=== PATIENT | male | born 1960 | race Caucasian/White ===

== ENCOUNTER 2017-09-14 09:49 | Emergency (ER) | payer MEDICARE | END 2017-09-14 11:39 | disposition home or self-care (01) | LOC: D.ER 09:49 | DX: S22.32XA Fracture of one rib, left side, initial encounter for closed fracture (principal); W01.0XXA Fall on same level from slipping, tripping and stumbling without subsequent striking against object, initial encounter; Y93.89 Activity, other specified; Y92.019 Unspecified place in single-family (private) house as the place of occurrence of the external cause; I10 Essential (primary) hypertension; E11.9 Type 2 diabetes mellitus without complications ==

== ENCOUNTER 2019-01-26 06:45 | Day surgery (SDC) | payer MEDICARE ==
[2019-01-25 13:34] LABS: HEMATOCRIT 40.9 % (42.0-54.0); HEMOGLOBIN 14.4 g/dL (13.5-17.5); MCH 29.7 pg (26.0-34.0); MCHC 35.2 g/dL (31.0-37.0); MCV 84.3 fL (80.0-100.0); MEAN PLATELET VOLUME 9.5 fL (7.4-10.4); RBC 4.85 10x6/uL (4.20-6.10); RDW 14.2 % (11.5-14.5); WBC 8.3 10x3/uL (4.8-10.8)
[2019-01-25 13:45] LABS: ANION GAP 12.1 mmol/L (8-16); CALCIUM 9.3 mg/dL (8.5-10.1); CARBON DIOXIDE 27.2 mmol/L (21.0-32.0); CREATININE - SERUM 1.3 mg/dL (0.6-1.3); POTASSIUM - SERUM 4.3 mmol/L (3.5-5.1)
[~2019-01-26] VITALS: Ht 185.4 cm; Wt 119.7 kg
[~2019-01-26 06:45] MED LIST: CYCLOBENZAPRINE10 MG PO; GLUCOPHAGE1000 MG PO; LISINOPRIL10 MG PO; VOLTAREN75 MG PO; ZIAC 10-6.25 MG1 TAB PO
[2019-01-26 07:47] VITALS: BP 173/96; Ht 185.4 cm; Wt 119.7 kg
--- NOTE | 2019-01-26 11:16 | OP ---
PATIENT NAME: LOREE BEAL MEDICAL RECORD: [id number] :62 LOCATION:D.[facility] ADMISSION DATE: SURGEON: JORDAN BALDERAS MD DATE OF OPERATION: 01/26/2019 SURGEON: oJrdan Balderas MD ANESTHESIA: TIVA by Ned Bradley CRNA. DIAGNOSIS: Obstructive BPH. COMFORT shows a 50 gram prostate. IPSS score is 17, quality of life score is 5. FINDINGS: On cystoscopy, obstructive bilateral lateral lobes, some tightness of the bladder neck. PROCEDURE: UroLift times 5. COMPLICATIONS: None. ESTIMATED BLOOD LOSS: Minimal. CLINICAL HISTORY: This is a 58-year-old male with a complaint of urinary frequency for the past 3 months. He has urgency without urge incontinence. There is no hesitancy in getting started. The stream is weaker than before. He does feel that he is emptying. He has nocturia times 5-6 and in the daytime he has urinary frequency every 1-1/2 hours. There have been no urinary tract infections. He is quite bothered by the voiding symptoms. He is not taking any medications for BPH. His urinalysis at the time of the clinic visit was normal. His postvoid residual was 3 mL. He refused to have a COMFORT performed in the office and wished to have it done while he is asleep at the time of the UroLift procedure. He is not allergic to any medications. He was given Ancef concrete mason to the OR. DESCRIPTION OF PROCEDURE: The patient was placed in lithotomy position after having been given IV sedation. The UroLift scope was introduced. The lateral lobes are large and obstructive. The prostatic urethra was quite long. The bladder neck was somewhat tight also. There was no significant median lobe; however. We first placed the 2 bladder neck level implants about 1.5 cm distal to the bladder neck at the anterior lateral sulcus of the lateral lobe. One implant was placed on each side. We then went to the verumontanum level and at the anterior lateral sulcus, we placed 1 implant on each side. There was still a bit of obstruction from the mid urethra. I therefore placed one final unit in the mid urethra on the right side. This seemed to open up a nice clear anterior urethral channel. The bladder was left partly full for a voiding trial today. I will see him in followup in 1 months' time. TRANSINT:[id number] Voice Confirmation ID: [id number] DOCUMENT ID: [id number] OPERATIVE REPORT [id number] LOREE BEAL ROBERT S MD at 1116 CC: [id number] DICTATION DATE: 01/26/19 1003 APPLIANCE FIXER: 01/26/19 1107 REG [place] [id number] [place] [id number]
--- NOTE | 2019-01-26 11:59 | NUR ---
1115 DRESSED, AWAKE & ALERT. GIVEN DISCHARGE INFORMATION INCLUDING MED REC, RTC APPT, [facility] D/C INSTRUCTIONS, &UROLIFT D/C INSTRUCTIONS. VOICED UNDERSTANDING. TO PRIVATE CAR PER WHEELCHAIR BY THIS NURSE. HOME WITH , MRS. BEAL. Lou GONZALEZ R.N.
== END 2019-01-26 11:15 | disposition home or self-care (01) ==
LOC: D.OPS 06:45 → D.PAN 09:40 → D.OPS 09:40 → D.PAN 10:25 → D.OPS 10:45 → D.PAN 10:45 → D.OPS 11:15
PROVIDERS: Anesthesiology; ATTEND Urology
DX: N40.1 Benign prostatic hyperplasia with lower urinary tract symptoms (principal); N13.8 Other obstructive and reflux uropathy; R35.0 Frequency of micturition; R35.1 Nocturia; R39.15 Urgency of urination; R39.12 Poor urinary stream; Z01.812 Encounter for preprocedural laboratory examination

== ENCOUNTER 2020-03-12 23:44 | Observation (INO) | payer MEDICARE ==
[~2020-03-12] VITALS: Ht 185.4 cm; Wt 119.2 kg
--- NOTE | ~2020-03-12 | HEMODYNAMI ---
PATIENT:LOREE BEAL MEDICAL RECORD: [id number] : 62 LOCATION:[address] [facility] [id number] ADMISSION DATE: 03/13/20 Generatedon:03/13/202011:48 Patient name: LOREE BEAL Patient #: [id number] SSN: [id number] : 1960 Date of study: 03/13/2020 Page: Of Hemodynamic Procedure Report Patient Data Patient Demographics Procedure consent was obtained First Name: LOREE Gender: Male Last Name: : 1960 [facility] Initial: CHRISTINA Age: 59 year(s) Patient #: [id number] Race: SSN: [id number] Additional ID: [id number] Contact details Address: [address] [place] [address] State: [place] City: [place] Zip code: [address] Past Medical History Allergies: No known allergies Admission Admission Data Admission Date: 03/13/2020 Admission Time: 0:47 Arrival Date: 03/13/2020 Arrival Time: 0:47 Room #: D.2122 Insurance Payor: Medicare [facility] #: [id number] Height (in.): 72.83 BSA: 2.41 (m2) Height (cm.): 185 BMI: 34.77 (kg/m2) Weight (lbs.): 262.35 Weight (kg.): 119 Lab Results Lab Result Date: 03/13/2020 Lab Result Time: 0:00 Biochemistry Name Units Result Min Max BUN mg/dl 24 --(----)-* 7 18 Creatinine mg/dl 1.5 --(----)-* 0.6 1.3 eGFR ml/min 51 *-(----)-- 90 120 NONAFRICAN CBC Name Units Result Min Max Hemoglobin g/dl 12.1 *-(----)-- 13.5 17.5 Procedure Procedure Types Cath Procedure Diagnostic Procedure [facility] w/Coronaries Sedation Charges Moderate Sedation up to 15 minutes Peripheral Cath Diagnostic Procedure 4-Vessel Right Carotid Arteriogram Left Carotid Arteriogram Procedure Description Procedure Date Procedure Date: 03/13/2020 Procedure Start Time: 11:35 Procedure End Time: 11:47 Procedure Staff Name Function Damon Saunders MD Performing Physician Autumn Aggarwal RT Monitor Mandi Wiley RT Scrub Ronna Pan RN Nurse Procedure Data Cath Procedure Fluoroscopy Diagnostic fluoroscopy Total fluoroscopy Time: 1.6 time: 1.6 min min Diagnostic fluoroscopy Total fluoroscopy dose: 680 dose: 680 mGy mGy Contrast Material Contrast Material Type Amount (ml) Isovue 370 74 Entry Location Entry Primary Successful Side Size Upsize Upsize Entry Closure Succes sful Closure Location (Fr) 1 (Fr) 2 (Fr) Remarks Device Remarks Femoral Right 5 Fr Exoseal artery Estimated blood loss: 5 ml Diagnostic catheters Device Type Used For End Catheter Placement MULTIPACK JL 4.0 5Fr Procedure catheter MULTIPACK 3DRC 5Fr Procedure catheter MULTIPACK Pigtail 5 Fr Procedure catheter Procedure Complications No complications Procedure Medications Medication Administration Route Dosage Oxygen etCO2 Nasal cannula 2 l/min Lidocaine 2% added to field 20 Heparin Flush Bag added to field 2 bags (1000units/500ml NS) 0.9% NaCl I.V. 100 ml/hr Versed I.V. 2 mg Fentanyl I.V. 50 mcg Versed I.V. 2 mg Fentanyl I.V. 50 mcg Hemodynamics Rest BSA: 2.41 (m2) HGB: 12.1 (g/dl) O2 Consumption: Estimated: 290.87 (ml/min) O2 Co nsumption indexed: Estimated:120.69 (ml/min/m) Heart Rate: 77 (bpm) Pressure Samples Time Site Value (mmHg) Purpose Heart Use Rate(bpm) 11:42 LV 93/25,9 Snapshot 83 Gradients Valve Time Site Site Mean SEP/DFP Peak To Heart Use 1 2 (mmHg) (sec/min) Peak Rate (mmHg) (bpm) Aortic 11:42 LV AO 68 Snapshots Pre Cath Intra NCS Post Cath Vital Signs Time Heart Resp SPO2 etCO2 NIBP (mmHg) Rhythm Pain Sedation Rate (ipm) (%) (mmHg) Status Level (bpm) 11:25:55 78 15 98 0 179/91(141) NSR 0 (11) 10(A) , No pain 11:30:16 73 21 99 32.2 166/87(134) NSR 0 (11) 10(A) , No pain 11:34:42 67 10 94 23.9 145/81(123) NSR 0 (11) 10(A) , No pain 11:39:00 80 11 94 30.7 129/85(110) NSR 0 (11) 9(A) , No pain 11:43:14 72 11 96 36.7 131/79(107) NSR 0 (11) 10(A) , No pain 11:47:28 75 17 96 23.9 118/68(81) NSR 0 (11) 10(A) , No pain Medications Time Medication Route Dose Verified Delivered Reason Notes Eff ectiveness by by 11:25:41 Oxygen etCO2 2 Damon Buffie used for Nasal l/min St Karl Pan seo manager cannula 11:25:47 Lidocaine 2% added 20ml Damon Damon for local to vial [facility] anesthetic field MD ONEILL 11:25:55 Heparin Flush added 2 Damon Damon used for Bag to bags [facility] procedure (1000units/500ml field MD ONEILL NS) 11:26:03 0.9% NaCl I.V. 100 Damon Buffie Per ml/hr Nicky Pan RN physician 11:28:35 Versed I.V. 2 mg Damon Buffie for NickyKarl Pan RN sedation 11:28:40 Fentanyl I.V. 50 Damon Buff[address] for mcg [address] Karl Pan RN sedation 11:36:54 Versed I.V. 2 mg Damon Buffie for NickyKarl Pan RN sedation 11:37:01 Fentanyl I.V. 50 Damon Buffie for [facility] St Karl Pan RN sedation Procedure Log Time Note 11:00:40 Informed consent obtained and on chart 11:04:47 Arrival Date: 03/13/2020 12:47:00 AM 11:05:11 Insurance Payor : Medicare 11:05:15 Patient Height : 72.83 inches 11:05:18 Patient Weight : 262.35 lbs 11:05:49 Lab Result : eGFR NONAFRICAN 51 ml/min 11:05:49 Lab Result : Creatinine 1.5 mg/dl 11:05:49 Lab Result : BUN 24 mg/dl 11:05:49 Lab Result : Hemoglobin 12.1 g/dl 11:05:56 Procedure Status Urgent Heart Cath (IP). 11:06:17 Diagnostic Cath Status : Urgent 11:06:49 Time tracking: Regular hours (M-F 7:00 - 5:00) 11:06:53 Plan of Care:Hemodynamics will remain stable., Cardiac rhythm will remain stable., Comfort level will be maintained., Respiratory function will remain adequate., Patient/ family verbilizes understanding of procedure., Procedure tolerated without complication., Recovers from procedure without complications.. 11:10:05 Ronna Pan RN sent for patient. Start room use. 11:13:47 Patient allergic to No known allergies 11:14:09 H&P Date Dictated: 03/13/2020 Within 30 days and on chart.. 11:14:10 Pre-procedure instructions explained to patient. 11:14:11 Pre-op teaching completed and patient verbalized understanding. 11:14:15 Patient NPO since Midnight. 11:14:22 Lab results completed and on chart. 11:14:26 Stress Test: no; N/A ? 11:14:27 Alarms reviewed by R. N. 11:14:27 Sharps counted by scrub and verified by R.N. 11:16:35 Risk of Mortality: 0.2 11:16:37 Risk of blood transfusion: 2.6 11:16:40 Risk of CRISTIANE: 0.9 11:16:48 Patient received from Med II to CCL 2 Alert and oriented. Tansferred to table in Supine position. 11:16:54 Warm blankets applied, and shantell hugger turned on for patient comfort. 11:16:55 Correct patient and procedure confirmed by team. 11:16:55 ECG and BP/O2 sat monitors applied to patient. 11:16:58 Family in patients room. 11:24:39 Vital chart was started 11:24:41 Full Disclosure recording started 11:24:44 Is the patient allergic to Iodine/contrast media? No. 11:24:47 Was the patient premedicated? Yes 11:24:51 Patient diabetic? Yes. 11:24:53 If diabetic: On Metformin? Yes 11:25:05 If on Metformin: Last Dose? 03/12/2020 11:25:08 ----Pre-sedation anethsthesia assessment.---- 11:25:14 Previous problem with sedation/anesthesia? No ? 11:25:15 Snore? Yes 11:25:17 Sleep apnea? Unknown 11:25:18 Deviated septum? No 11:25:19 Opens mouth fully? Yes 11:25:20 Sticks out tongue? Yes 11:25:22 Airway obstruction? No ? 11:25:24 Dentures? No ? 11:25:27 Pre procedure: right dorsailis pedis pulse 2+ Normal; easily identifiable; not easily obliterated 11:25:30 Patient pain scale 0/10 ?. 11:25:40 IV patent on arrival in right antecubital with 0.9% NaCl at [facility]. 11:25:41 Oxygen 2 l/min etCO2 Nasal cannula was administered by Ronna Pan RN; used for procedure; Verbal order read back and verified. 11:25:46 Right groin area was prepped with chlora-prep and draped in sterile fashion 11:25:47 Lidocaine 2% 20ml vial added to field was administered by Damon Saunders MD; for local anesthetic; Verbal order read back and verified. 11:25:51 Baseline sample Acquired. 11:25:54 Rhythm: sinus rhythm 11:25:55 Heparin Flush Bag (1000units/500ml NS) 2 bags added to field was administered by Damon Saunders MD; used for procedure; Verbal order read back and verified. 11:26:01 Use device set Femoral Dx 11:26:02 ACIST Syringe (87935) opened to sterile field. 11:26:03 0.9% NaCl 100 ml/hr I.V. was administered by Ronna Pan RN; Per physician; Verbal order read back and verified. 11:26:03 Bag Decanter (2002S) opened to sterile field. 11:26:03 Medline Cath Pack ([id number]) opened to sterile field. 11:26:05 ACIST Hand Control (82272) opened to sterile field. 11:26:05 ACIST Manifold (39517) opened to sterile field. 11:26:09 DIAGNOSTIC Multipack 5Fr catheter set ([id number]) opened to sterile field. 11:26:12 SHEATH 5FR Willington (FII959) opened to sterile field. 11:26:13 MARY JO Guide Wire (189-707) opened to sterile field. 11:28:12 --------ALL STOP TIME OUT------ 11:28:12 Final Timeout: patient, procedure, and site verified with staff and physician. All members of the team are in agreement. 11:28:15 Right groin site verified by team. 11:28:18 Fire Safety Assessment: A--An alcohol-based skin anteseptic being used preoperatively., C--Open oxygen or nitrous oxide is being used., D--An ESU, laser, or fiber-optic light is being used. 11:28:22 Physical assessment completed. ASA score P 2 - A patient with mild systemic disease as per Damon Saunders MD. 11:28:35 Versed 2 mg I.V. was administered by Ronna Pan RN; for sedation; Verbal order read back and verified. 11:28:40 Fentanyl 50 mcg I.V. was administered by Ronna Pan RN; for sedation; Verbal order read back and verified. 11:28:55 3a) 45-59 Moderately reduced kidney function. 11:28:58 Maximum allowable contrast dose (3.7 X eGFR X 0.75)142 ml. 11:29:02 Sedation plan: IV Moderate Sedation Medication:Versed, Fentanyl 11:34:35 Procedure started. 11:35:54 Local anesthetic to right femoral artery with Lidocaine 2% by Damon Saunders MD.INITIAL ACCESS ONLY 11:36:10 A 5 Fr sheath was inserted into the Right Femoral artery 11:36:50 A MULTIPACK JL 4.0 5Fr catheter was advanced over the wire and used for Procedure. 11:36:54 Versed 2 mg I.V. was administered by Ronna Pan RN; for sedation; Verbal order read back and verified. 11:37:01 Fentanyl 50 mcg I.V. was administered by Ronna Pan RN; for sedation; Verbal order read back and verified. 11:37:49 LCA angiography performed. 11:37:54 Injector settings: Ml/sec: 3, Volume: 6, 11:38:47 Catheter removed. 11:38:53 A MULTIPACK 3DRC 5Fr catheter was advanced over the wire and used for Procedure. 11:39:32 RCA angiography performed. 11:39:34 Injector settings: Ml/sec: 3, Volume: 6, 11:40:02 Right carotid angiography performed. 11:40:47 Left carotid angiography performed. 11:41:08 Injector settings: Ml/sec: 3, Volume: 6, 11:41:09 Catheter removed. 11:41:13 A MULTIPACK Pigtail 5 Fr catheter was advanced over the wire and used for Procedure. 11:41:24 LV gram done using STRINGER 11:41:27 Injector settings: Ml/sec: 5, Volume: 15, 11:42:07 LV hemodynamics recorded. 11:42:15 EF : 55 % 11:42:26 Catheter removed. 11:42:34 EXOSEAL 5Fr (EX500) opened to sterile field. 11:42:54 Sheath removed intact; hemostasis achieved with Exoseal to the Right Femoral artery. 11:42:56 Procedure ended.(Physican Out) 11:43:09 Fluoroscopy time 01.60 minutes. 11:43:13 Fluoroscopy dose: 680 mGy 11:43:13 Flurop Dose total: 680 11:43:18 Dose Area Product 76994 mGy/cm. 11:43:23 Contrast amount:Isovue 370 74ml. 11:43:25 Maximum allowable dose exceeded? No. 11:43:26 Sharps counted by scrub and verified by R.N. 11:43:31 Post-op/insertion site Right Femoral artery dressed using a 4 x 4 and Tegaderm. 11:43:58 Post right femoral artery:stable, soft, clean and dry 11:44:02 Post Procedure Pulses reassessed and unchanged 11:44:05 Post procedure: right dorsailis pedis pulse 2+ Normal; easily identifiable; not easily obliterated. 11:44:08 Post-procedure physical assessment completed. ASA score P 2 - A patient with mild systemic disease as per Damon Saunders MD. 11:44:12 Post procedure rhythm: unchanged. 11:44:14 Estimated blood loss: 5 ml 11:44:15 Post procedure instruction explained to patient.Patient verbalizes understanding. 11:44:16 Patient needs reinforcement of post procedure teaching. 11:45:07 Procedure type changed to Cath procedure, Diagnostic procedure, LHC, LHC w/Coronaries, Sedation Charges, Moderate Sedation up to 15 minutes, Peripheral Cath Diagnostic Procedure, 4-Vessel, Right Carotid Arteriogram, Left Carotid Arteriogram 11:46:43 Procedure and supply charges have been captured, reviewed, submitted and are correct. 11:46:47 Procedure Complication : No complications 11:46:50 Vital chart was stopped 11:46:53 [facility] Findings: MVD- MD will discuss options w/ pt 11:47:02 4Vessel Findings: mild to moderate disease (<70%, see procedure notes) 11:47:06 Report given to [facility]. 11:47:09 Patient transfered to [facility] with Bed. 11:47:13 Operative report dictated upon procedure completion. 11:47:14 See physician's report for complete and final results. 11:47:17 Procedure ended. 11:47:17 Full Disclosure recording stopped 11:47:28 End room use (Document Last) 11:47:38 End room use (Document Last) 11:47:57 End room use (Document Last) Device Usage Item Name Manufacture Quantity Catalog Hospital Part Current Minimal L ot# / Number Charge Number Stock Stock Serial# Code ACIST Acist 1 23258 874208 477745 218074 20 Syringe Medical (33347) Systems Inc Bag Microtek 1 794394 07331 742566 5 Decanter Medical Inc. () Medline Medline 1 [id number] 127856 89259 928675 5 Cath Pack ([id number]) ACIST Hand Acist 1 47678 554322 397125 972629 5 Control Medical (60366) Systems Inc ACIST Acist 1 25080 983434 848753 961340 5 Manifold Medical (32142) Systems Inc DIAGNOSTIC Cardinal 1 RF1716 242529 71553 614755 30 Multipack Health 5Fr catheter set (OP3521) SHEATH 5FR Terumo 1 ULD613 681736 020395 512100 5 [place] (MSY394) EMERALD Cardinal 1 502-455 250767 062876 639530 5 Guide Wire Health (502455) MULTIPACK Cardinal 1 500513 5 JL 4.0 5Fr Health catheter MULTIPACK Cardinal 1 905289 5 3DRC 5Fr Health catheter MULTIPACK Cardinal 1 587745 5 Pigtail 5 Health Fr catheter EXOSEAL 5Fr Cardinal 1 EX500 945807 777117 252640 10 (EX500) Health Signature Audit [place] Stage Time Signature Unsigned Intra-Procedure 03/13/2020 Autumn Aggarwal 11:47:38 AM RT(R) Intra-Procedure 03/13/2020 Ronna Pan RN 11:47:57 AM Intra-Procedure 03/13/2020 Damon Simmons 11:48:21 AM Karl ONEILL Signatures Performing Physician : Signature : Damon Saunders MD Date : Time : Monitor : Autumn Aggarwal Signature : RT Date : Time : Nurse : Ronna Pan RN Signature : Date : Time : [facility] [address] [place] [address]
[2020-03-13 00:13] LABS: BASOPHILS 0.4 % (0-2); EOSINOPHILS 13.8 % (0-7); HEMATOCRIT 40.6 % (42.0-54.0); HEMOGLOBIN 13.5 g/dL (13.5-17.5); IMMATURE GRANULOCYTES 0.5 % (0-5); LYMPHOCYTES 26.2 % (15-50); MCH 27.7 pg (26.0-34.0); MCHC 33.3 g/dL (31.0-37.0); MCV 83.2 fL (80.0-100.0); MEAN PLATELET VOLUME 9.6 fL (7.4-10.4); MONOCYTES 8.2 % (2-11); NEUTROPHILS 50.9 % (40-80); PLATELET COUNT 235 10x3/uL (130-400); RBC 4.88 10x6/uL (4.20-6.10); RDW 14.8 % (11.5-14.5)
[2020-03-13 00:15] LABS: CALC OSMOLALITY 285 mosm/kg (275-300); CHLORIDE - SERUM 106 mmol/L (98-107); CREATININE - SERUM 1.7 mg/dL (0.6-1.3); GLUCOSE 160 mg/dL (74-106); POTASSIUM - SERUM 3.6 mmol/L (3.5-5.1); SODIUM 140 mmol/L (136-145); UREA NITROGEN 23 mg/dL (7-18); eGFR NON AFRICAN AMERICAN 44 mL/min (90-120)
[2020-03-13 00:19] LABS: APTT 28.2 SECONDS (22.8-39.4)
[2020-03-13 00:20] LABS: INR 0.99 (0.85-1.17)
[2020-03-13 00:24] VITALS: BP 125/69
[2020-03-13 00:30] LABS: ALBUMIN 4.3 g/dL (3.4-5.0); ALKALINE PHOSPHATASE 91 U/L (30-120); ALT (SGPT) 47 U/L (10-68); BILIRUBIN - TOTAL 0.48 mg/dL (0.2-1.3); CKMB 0.9 U/L (0.0-3.6); CREATINE KINASE 77 UL (21-232); MAGNESIUM - SERUM 2.1 mg/dL (1.8-2.4); PROTEIN - SERUM 7.6 g/dL (6.4-8.2)
[2020-03-13 00:31] LABS: TROPONIN-I < 0.017 ng/mL (0.000-0.060)
[2020-03-13 00:52] VITALS: BP 144/76
--- NOTE | 2020-03-13 01:43 | NUR ---
PT ARRIVED VIA STRETCHER NO DISTRESS NOTED. SPOUSE AT BEDSIDE.
[2020-03-13 01:55] VITALS: BP 158/72; Ht 185.4 cm; Wt 119.2 kg
--- NOTE | 2020-03-13 02:27 | NUR ---
ADMISSION ASSESSMENT, HISTORY AND HOME MED LIST COMPLETED. PT DENIED ANY DISCOMFORT. PT REFUSED IV FLUIDS, O2 AND NON SLIP SOCKS. PT STATES HE CAN'T STAND TO WEAR SOCKS IN BED. INFORMED OF RATIONALE OF SOCKS. PT STATED HE WOULD PUT THEM ON IF UP TO BR. VS. SR PER CM. IV TO RAC SL. LUNGS CTA. CL[place]. PALPABLE PERIPHERAL PULSES. TYLENOL 65OMG GIVEN FOR C/O MOYA SECONDARY TO NITRO PATCH. SR UP X1, CALL LIGHT WITHIN REACH AND AT BEDSIDE.
[2020-03-13 04:00] VITALS: BP 111/53
--- NOTE | 2020-03-13 04:23 | NUR ---
PT RESTING WITH EYES CLOSED. RESP EVEN AND REGULAR. SR UP X1, CALL LIGHT WITHIN REACH.
[2020-03-13 06:22] LABS: CKMB 0.6 U/L (0.0-3.6); CREATINE KINASE 47 UL (21-232); TROPONIN-I < 0.017 ng/mL (0.000-0.060)
--- NOTE | 2020-03-13 06:22 | NUR ---
VSS THROUGHOUT NIGHT. SR OR CM. PT STATED TYLENOL ALLEVIATED MOYA. NEEDS MET; WILL CONTINUE TO MONITOR.
[2020-03-13 08:39] LABS: BASOPHILS 0.5 % (0-2); EOSINOPHILS 13.5 % (0-7); HEMOGLOBIN 12.1 g/dL (13.5-17.5); IMMATURE GRANULOCYTES 0.2 % (0-5); LYMPHOCYTES 26.7 % (15-50); MCH 28.1 pg (26.0-34.0); MCHC 32.7 g/dL (31.0-37.0); MCV 85.8 fL (80.0-100.0); MEAN PLATELET VOLUME 9.7 fL (7.4-10.4); MONOCYTES 7.8 % (2-11); NEUTROPHILS 51.3 % (40-80); PLATELET COUNT 241 10x3/uL (130-400); RBC 4.31 10x6/uL (4.20-6.10); RDW 14.8 % (11.5-14.5); WBC 8.2 10x3/uL (4.8-10.8)
--- NOTE | 2020-03-13 08:54 | NUR ---
CONSENTS FOR HEART CATH SIGNED BY PT'S SPOUSE, AND PLACED ON CHART. PT RESTING COMFORTABLY IN BED, DENIES ANY NEEDS AT THIS TIME. HEART MONITOR SHOWING SR WITH RATE OF 60. RT AC IV SL. CALL LIGHT IN REACH, NAD NOTED, WILL CONTINUE TO MONITOR.
[2020-03-13 09:02] LABS: ANION GAP 12.9 mmol/L (8-16); CALCIUM 8.6 mg/dL (8.5-10.1); CARBON DIOXIDE 25.1 mmol/L (21.0-32.0); CHOL - HDL RATIO 6.2 ratio (2.3-4.9); CREATININE - SERUM 1.5 mg/dL (0.6-1.3); LDL-HDL RATIO 4.2 ratio (1.5-3.5)
[2020-03-13 09:22] VITALS: BP 131/73
--- NOTE | 2020-03-13 11:10 | NUR ---
PRE-OP MEDS GIVEN, PT TO ADOLESCENT PSYCHIATRIST AT THIS TIME.
--- NOTE | 2020-03-13 12:12 | NUR ---
RECEIVED PT BACK TO ROOM 2121, PT STILL DROWSY BUT EASILY AROUSES TO VOICE. ON 2L NC AT THIS TIME. VITAL SIGNS STABLE, INTRUCTED PT TO REMAIN FLAT AND KEEP LEG STRAIGHT FOR 2HRS. PT DENIES ANY NEEDS AT THIS TIME. AT BEDSIDE, NAD NOTED, WILL CONTINUE TO MONITOR.
[2020-03-13 13:56] VITALS: BP 119/68
--- NOTE | 2020-03-13 16:36 | NUR ---
PAGE INTO CARDIO FOR D/C ORDERS. AWAITING CALL BACK.
--- NOTE | 2020-03-13 17:06 | NUR ---
PROVIDED VERBAL AND WRITTEN DISCHARGE TEACHING TO PT WHO VERBALIZED UNDERSTANDING REGARDING TEACHING. D/C RT AC IV WITH CATHETER TIP INTACT. HEART MONITOR REMOVED AND TAKEN TO LOCOMOTIVE OILER. PT WILL NOTIFY WHEN READY FOR WHEELCHAIR.
--- NOTE | 2020-03-13 17:15 | NUR ---
PT LEFT UNIT VIA WHEELCHAIR, WITH ALL BELONGINGS, ACCOMPANIED BY SPOUSE. NAD NOTED.
--- NOTE | 2020-03-14 15:44 | OP ---
PATIENT NAME: LOREE BEAL MEDICAL RECORD: [id number] :62 LOCATION:D.M2 D.2122 ADMISSION DATE:03/13/20 SURGEON: DARELL DAVILA MD DATE OF OPERATION: 03/13/2020 PROCEDURE: Left heart catheterization, selective coronary angiography plus 4-vessel arteriography, right femoral artery approach. CATHETERS: A 5-Portuguese sheath, 5/4 right and Adria, 5/4 pig. The procedure was well tolerated. The patient was returned to brewster, sheath removed, ExoSeal device placed. FINDINGS: Left ventriculography in 30-degree STRINGER view: Normal wall motion. Normal systolic function. CORONARY ANATOMY: LEFT MAIN: Left main is free of disease. LAD: Has minimal wall disease, but no flow obstructive disease. CIRCUMFLEX: Large circumflex free of disease. RIGHT CORONARY ARTERY: Again, large, free of disease. The right diagnostic catheter was selectively engaged into the right common carotid. The right common carotid is a smooth-walled vessel, free of disease. Right internal carotid, smooth-walled vessel, free of disease. Right external carotid, smooth-walled vessel, free of disease. The left common carotid was selectively engaged, is smooth-walled vessel, free of disease. Left internal carotid is smooth-walled vessel, free of disease. Left external carotid smooth-walled vessel, free of disease. IMPRESSION: Normal LV function. Normal carotid arteries, essentially normal coronary anatomy. TRANSINT:[id number] Voice Confirmation ID: [id number] DOCUMENT ID: [id number] DARELL DAVILA MD at 1544 CC: [id number] DICTATION DATE: 03/13/20 1154 BUFFER AUTOMATIC: 03/13/20 2238 DIS IN 03/13/20 [facility] [address] [place] [id number]
--- NOTE | 2020-03-14 15:44 | CN ---
PATIENT NAME:LOREE BEAL MEDICAL RECORD: [id number] : 62 LOCATION:D.M2 D.2122 ADMIT DATE: 03/13/20 ACCOUNT: [id number] CONSULTING PHYSICIAN: DARELL DAVILA MD REFERRING PHYSICIAN: NORMA SUTTON MD DATE OF CONSULTATION: 03/13/2020 HISTORY OF PRESENT ILLNESS: A 59-year-old gentleman with no known history of coronary artery disease, has a history of hypertension, hyperlipidemia as well as diabetes mellitus. He has been having intermittent chest tightness and pressure described as a person standing on his chest. This mainly accompanied by symptomology worrisome for TIA with visual changes consistent with amaurosis as well as right-sided weakness and tingling, and also had rest symptomology last night. We are asked to see him concerning his cardiovascular status. PAST MEDICAL HISTORY: Includes: 1. History of hypertension. 2. Hyperlipidemia. 3. Diabetes mellitus. ALLERGIES: None known. MEDICATIONS: Include metformin 1 gram b.i.d., Voltaren 75 b.i.d., lisinopril 10 b.i.d., bisoprolol 10/6.25 every day. SOCIAL HISTORY: Nonsmoker, nondrinker. Easily takes care of all his ADLs. No set exercise program. REVIEW OF SYSTEMS: The patient reports easy bruising but reports no swollen glands. The patient reports no fever, no night sweats, no significant weight gain, no significant weight loss. No significant exercise tolerance. The patient reports no dry eyes, no irritation, no vision change. Patient reports no difficulty hearing and no ear pain. Patient reports no frequent nose bleeds or nose and sinus problems. Patient reports on arm pain on exertion. No shortness of breath while lying down. No history of heart murmur. Patient reports no cough, no wheezing or coughing up blood. Patient reports no abdominal pain, no vomiting. Normal appetite. No diarrhea and not vomiting blood. No nausea and no constipation. Patient reports no incontinence. No difficulty urinating. No hematuria. No increased frequency. Patient reports no muscle aches. No weakness, no arthralgias, no back pain. No swelling of the extremities. Patient reports no abnormal mole, no jaundice, no rashes. Reports no loss of consciousness. No weakness and no numbness. No seizures, dizziness, or headaches. The patient reports no depression, no sleep disturbance, feeling safe in a relationship and no alcohol abuse. Patient reports on fatigue. Reports no runny nose or sinus pressure. No itching, no hives, and no frequent sneezing. PHYSICAL EXAMINATION: GENERAL: Well-developed, well-nourished, in no acute distress, appears stated age. VITAL SIGNS: Blood pressure 111/53, pulse 60 and regular. HEENT: Normocephalic and atraumatic. NECK: No JVD or bruit. HEART: Regular, II/ systolic ejection murmur. LUNGS: Good air excursion. CONSULT REPORT [id number] LOREE BEAL ABDOMEN: Soft, nontender. EXTREMITIES: Pulses well preserved, 2+ with no edema. IMPRESSION: Acute coronary syndrome, TIA symptomology accompanied by amaurosis fugax symptomology. PLAN: We will plan for angiography as well as 4-vessel. Further evaluation based on the above. TRANSINT:[id number] Voice Confirmation ID: [id number] DOCUMENT ID: [id number] DARELL DAVILA MD at 1544 CC: [id number] DICTATION DATE: 03/13/20 0835 METAL PAINTER: 03/13/20 1652 DIS IN 03/13/20 [facility] [address] [place] [address]
== END 2020-03-13 17:16 | disposition home or self-care (01) ==
LOC: D.ER 23:44 → OBSVTIME 03-13 00:47 → D.M2 03-13 00:47
PROVIDERS: Emergency Medicine; Internal Medicine Interventional Cardiology; ADMIT Family Medicine; ATTEND Family Medicine
DX: I20.0 Unstable angina (principal); E11.65 Type 2 diabetes mellitus with hyperglycemia; D64.9 Anemia, unspecified; N17.9 Acute kidney failure, unspecified; I10 Essential (primary) hypertension; N40.0 Benign prostatic hyperplasia without lower urinary tract symptoms; G89.29 Other chronic pain

== ENCOUNTER 2020-11-19 23:00 | Emergency (ER) | payer MEDICARE ==
[~2020-11-19] VITALS: Ht 185.4 cm; Wt 118.2 kg
[2020-11-19 23:13] VITALS: Ht 185.4 cm; Wt 118.2 kg
[2020-11-19] MEDS ORDERED: BACTRIM DS TAB1 EAC1 PO (23:16)
[2020-11-19 23:59] LABS: HEMATOCRIT 39.3 % (42.0-54.0); HEMOGLOBIN 13.1 g/dL (13.5-17.5); LYMPHOCYTES 15.1 % (15-50); MCH 27.5 pg (26.0-34.0); MCHC 33.3 g/dL (31.0-37.0); MCV 82.4 fL (80.0-100.0); MEAN PLATELET VOLUME 9.1 fL (7.4-10.4); NEUTROPHILS 72.2 % (40-80); PLATELET COUNT 273 10x3/uL (130-400); RBC 4.77 10x6/uL (4.20-6.10); RDW 15.9 % (11.5-14.5); WBC 9.9 10x3/uL (4.8-10.8)
[2020-11-20 00:09] LABS: CALCIUM 9.3 mg/dL (8.5-10.1); CARBON DIOXIDE 27.6 mmol/L (21.0-32.0); CREATININE - SERUM 1.6 mg/dL (0.6-1.3); POTASSIUM - SERUM 3.6 mmol/L (3.5-5.1)
[2020-11-20 00:14] LABS: ALBUMIN 4.2 g/dL (3.4-5.0); BILIRUBIN - TOTAL 0.49 mg/dL (0.2-1.3); PROTEIN - SERUM 7.9 g/dL (6.4-8.2)
[2020-11-20] MEDS ORDERED: OMEPRAZOLE20 M1 PO (00:55)
[2020-11-20 01:12] VITALS: BP 136/84
== END 2020-11-20 01:18 | disposition home or self-care (01) ==
LOC: D.ER 23:00
PROVIDERS: Emergency Medicine
DX: R09.89 Other specified symptoms and signs involving the circulatory and respiratory systems (principal); I10 Essential (primary) hypertension; E11.9 Type 2 diabetes mellitus without complications; Z79.84 Long term (current) use of oral hypoglycemic drugs